=== PATIENT | male | born 1980 | race Caucasian/White ===

== ENCOUNTER 2018-10-11 11:20 | Emergency (ER) | payer MEDICAID ==
[~2018-10-11] VITALS: Ht 177.8 cm; Wt 95.3 kg
[2018-10-11 11:26] VITALS: Ht 177.8 cm; Wt 95.3 kg
[2018-10-11 12:44] VITALS: BP 120/84
== END 2018-10-11 12:44 | disposition home or self-care (01) ==
LOC: ED 11:20
DX: S92.002A Unspecified fracture of left calcaneus, initial encounter for closed fracture (principal); X50.1XXA Overexertion from prolonged static or awkward postures, initial encounter; Y93.9 Activity, unspecified; Y92.89 Other specified places as the place of occurrence of the external cause; Y99.8 Other external cause status

== ENCOUNTER 2018-11-14 22:35 | Emergency (ER) | payer OTHER ==
[~2018-11-14] VITALS: Ht 177.8 cm; Wt 95.3 kg
[2018-11-14 23:25] VITALS: BP 162/90; Ht 177.8 cm; Wt 95.3 kg
== END 2018-11-15 01:18 | disposition home or self-care (01) ==
LOC: ED 22:35
DX: L03.116 Cellulitis of left lower limb (principal); Z98.890 Other specified postprocedural states
CPT/HCPCS: J0696

== ENCOUNTER 2018-12-18 17:15 | Emergency (ER) | payer OTHER ==
[~2018-12-18] VITALS: Ht 177.8 cm; Wt 95.3 kg
[2018-12-18 17:29] VITALS: Ht 177.8 cm; Wt 95.3 kg
[2018-12-18 18:44] VITALS: BP 121/71
== END 2018-12-18 18:44 | disposition home or self-care (01) ==
LOC: ED 17:15
DX: S82.892D Other fracture of left lower leg, subsequent encounter for closed fracture with routine healing (principal); X58.XXXD Exposure to other specified factors, subsequent encounter

== ENCOUNTER 2019-01-23 21:32 | Emergency (ER) | payer OTHER ==
[~2019-01-23] VITALS: Ht 167.6 cm; Wt 98.4 kg
[2019-01-23 21:45] VITALS: Ht 167.6 cm; Wt 98.4 kg
[2019-01-23 22:37] VITALS: BP 170/93
== END 2019-01-23 22:37 | disposition home or self-care (01) ==
LOC: ED 21:32
DX: S92.002D Unspecified fracture of left calcaneus, subsequent encounter for fracture with routine healing (principal); X58.XXXD Exposure to other specified factors, subsequent encounter